=== PATIENT | female | born 1980 | race Caucasian/White ===

== ENCOUNTER 2017-10-16 11:03 | Inpatient (IN) | payer OTHER ==
[~2017-10-16] VITALS: Ht 167.6 cm; Wt 77.1 kg
[2017-11-03] MEDS ORDERED: PRENATAL 19 TA1 EAC1 PO (03:46)
[2017-11-03] MEDS ORDERED: ZANTAC 7575 MG PO (03:46)
== END 2017-11-05 16:28 | DRG 775 ==
LOC: LDR 11-03 00:10 → SURG-SUITE 11-03 01:13 → OB/GYN 11-13 13:15
PROC: 0KQM0ZZ Repair Perineum Muscle, Open Approach (ICD-10-PCS; principal; 2017-11-03)
PROC: 10E0XZZ Delivery of Products of Conception, External Approach (ICD-10-PCS; 2017-11-03)
PROC: 4A1HXCZ Monitoring of Products of Conception, Cardiac Rate, External Approach (ICD-10-PCS; 2017-11-03)
PROC: 4A033R1 Measurement of Arterial Saturation, Peripheral, Percutaneous Approach (ICD-10-PCS; 2017-11-03)
DX: O70.1 Second degree perineal laceration during delivery (principal); Z37.0 Single live birth; Z3A.38 38 weeks gestation of pregnancy